=== PATIENT | female | born 1960 | race Caucasian/White ===

== ENCOUNTER → 2017-06-19 | Outpatient (CLI) | payer BC | LOC: MC.RAD 09:40 | DX: Z12.31 Encounter for screening mammogram for malignant neoplasm of breast (principal); Z98.82 Breast implant status ==

== ENCOUNTER → 2018-09-24 | Outpatient (CLI) | payer BC | LOC: COL.RAD 10:42 | DX: M79.89 Other specified soft tissue disorders (principal); M79.605 Pain in left leg ==

== ENCOUNTER → 2019-12-30 | Outpatient (CLI) | payer BC | LOC: COL.RAD 07:30 | DX: R10.11 Right upper quadrant pain (principal) ==

== ENCOUNTER → 2020-05-30 | Outpatient (CLI) | payer BC | LOC: MC.RAD 15:17 | DX: Z12.31 Encounter for screening mammogram for malignant neoplasm of breast (principal) ==